=== PATIENT | male | born 1930 | race Caucasian/White ===

== ENCOUNTER → 2016-03-05 | Outpatient (CLI) | payer BC | LOC: GMAB 17:30 | PROVIDERS: ATTEND Family Medicine | DX: E03.9 Hypothyroidism, unspecified (principal) ==

== ENCOUNTER → 2016-07-30 | Outpatient (CLI) | payer BC | END | disposition home or self-care (01) | LOC: GMAB 14:27 | PROVIDERS: ATTEND Family Medicine | DX: R94.6 Abnormal results of thyroid function studies (principal) ==

== ENCOUNTER → 2017-02-10 | Outpatient (CLI) | payer BC, MEDICARE | END | disposition home or self-care (01) | LOC: GMAB 14:42 | PROVIDERS: ATTEND Family Medicine | DX: E03.9 Hypothyroidism, unspecified (principal); Z12.5 Encounter for screening for malignant neoplasm of prostate; M10.9 Gout, unspecified; I10 Essential (primary) hypertension | CPT/HCPCS: 84439; 84443; 84481; 84550; G0103 ==

== ENCOUNTER → 2017-08-03 | Outpatient (CLI) | payer MEDICARE | LOC: GMAB 14:24 | PROVIDERS: ATTEND Family Medicine | DX: E03.9 Hypothyroidism, unspecified (principal) ==

== ENCOUNTER → 2017-08-06 | Outpatient (CLI) | payer MEDICARE, BC ==
--- NOTE | 2017-08-06 14:34 | US ---
EXAM DESCRIPTION: Carotid Duplex: ULTRASOUND. CLINICAL HISTORY: DIZZINESS AND GIDDINESS COMPARISON: None. TECHNIQUE: Transcutaneous scanning utilizing 2-dimensional and Doppler modes to evaluate the bilateral carotid systems and vertebral arteries. Percentage of diameter of stenosis or no stenosis recorded will be based upon NASCET criteria. FINDINGS: Peak systolic/end diastolic (CM-Sec) CCA Right 72/7 Left 61/12. ICA Right proximal 65/12, mid 62/20. Left proximal 66/17, Distal 57/18. Vertebral Right 40/0 Left 41/8. ECA (PS Only) Right 72 left 55. ICA/CCA peak systolic ratio: Right 0.9 Left 1.1 ICA/CCA end diastolic ratio: Right 1.6 Left 1.4 Vertebral arteries: antegrade flow. Comments: Bilateral atherosclerotic calcification in the distal common carotid arteries, bifurcations, and proximal ICAs. Area stenosis of right bulb CCA 37%. Identical diameter stenosis. There is stenosis of proximal ICA 26%; diameter stenosis 35%. Area stenosis in diameter stenosis of the left proximal CCA is 32%. Area stenosis and diameter stenosis of the left CCA bulb is approximately 38%. Area stenosis of the proximal left ICA is 54%; diameter stenosis 35%. IMPRESSION: 1. Doppler evaluation of the bilateral carotid systems and vertebral arteries shows no hemodynamically significant stenoses. 2. No significant amount of plaque seen in the carotid arteries bilaterally. Bilateral vertebral arteries showed antegrade-cephalad flow. Electronically signed by: Kun Gomez MD 08/06/2017 2:32 PM CDT
--- NOTE | 2017-08-11 08:37 | MRI ---
EXAM DESCRIPTION: Brain w/o Contrast: MRI. CLINICAL HISTORY: DIZZINESS AND GIDDINESS COMPARISON: Ultrasound carotid duplex examination on the same visit. TECHNIQUE: Multiplanar, high-field MRI unit, multiple diffusion sequences, multiple conventional sequences without contrast. Note: Images were not available until this date due to technical abnormalities. FINDINGS: Multiple small bilateral foci of hyperintense FLAIR and T2-weighted signal in the periventricular white matter and castro-white matter junctions of the cerebral hemispheres. Slightly more prevalent on the left. Largest focus is in the left occipital periventricular white matter . Dark blooming signal indicating calcification in the bilateral basal ganglia. Also bright T2 signal and decreased FLAIR signal in the basal ganglia. No hemorrhage, no cerebral edema, no mass-effect. Normal signal in the brainstem and cerebellar hemispheres. No hemorrhage, no cerebral edema, no mass-effect. Concordance of the diffusion and non-diffusion sequences with no diffusion restriction. Cortical sulci, ventricles, and other CSF spaces, and the subdural spaces are normally configured for patients age. No effacement or displacement. No midline shift. No extra-axial hemorrhage. Normal flow signal void in the major vessels of the craig Major, and the venous sinuses. IACs are symmetric bilaterally. Minimal fluid signal in the inferior right mastoid air cells. No mass effect in the bilateral cerebellopontine angles. Pituitary gland occupies approximately 50% of the sella. Fluid signal in the bilateral optic nerve sheaths. Base of the cerebellar tonsils is above the foramen magnum. Mucoperiosteal thickening in several compartments of the bilateral paranasal sinuses.. The bony calvarium is intact. IMPRESSION: 1. Bilateral periventricular white matter and subcortical white matter signal changes most likely related to aging and cerebral microvascular disease. No hemorrhage, mass effect, or cerebral edema. No diffusion restriction. 2. Signal changes in the bilateral basal ganglia also consistent with cerebral microvascular disease and ischemia. No diffusion restriction. No hemorrhage, mass effect, or cerebral edema. 3. Normal MRI noncontrast diffusion study with no evidence of acute or subacute infarction. 4. Edema in the optic nerve or its more on the right than the left. The significance of this is uncertain. No hydrocephalus. Paranasal chronic sinusitis. Electronically signed by: Kun Gomez MD 08/11/2017 8:36 AM CDT
== END ==
LOC: US 10:30
PROVIDERS: ATTEND Family Medicine
DX: I65.23 Occlusion and stenosis of bilateral carotid arteries (principal); R42 Dizziness and giddiness

== ENCOUNTER → 2018-02-09 | Outpatient (CLI) | payer MEDICARE, BC | LOC: GMAE 12:29 | PROVIDERS: ATTEND Family Medicine | DX: E03.9 Hypothyroidism, unspecified (principal); M10.9 Gout, unspecified ==

== ENCOUNTER → 2018-09-09 | Outpatient (CLI) | payer MEDICARE, BC ==
--- NOTE | 2018-09-09 16:14 | US ---
EXAM DESCRIPTION: Testicular CLINICAL HISTORY: 88 years Male, ENLARGED RT TESTICLE COMPARISON: None. FINDINGS: The right testicle measures 4.9 x 3.3 x 3.5 cm on the left testicle measures 4.6 x 3.5 x 3.4 cm. Both testicles demonstrate homogenous appearance with no masses. Normal blood flow is identified bilaterally. The right epididymis appears normal. 7 x 6 x 9 mm left epididymal cyst is present. Bilateral hydroceles slightly larger on the right side. IMPRESSION: Bilateral hydroceles, slightly larger on the right side. 7 x 6 x 9 mm left epididymal cyst. Electronically signed by: Shai Ansari MD 09/09/2018 4:11 PM CDT
== END ==
LOC: US 14:30
PROVIDERS: ATTEND Surgery
DX: N50.89 Other specified disorders of the male genital organs (principal); N43.3 Hydrocele, unspecified; N50.3 Cyst of epididymis

== ENCOUNTER 2018-09-27 05:57 | Observation (INO) | payer MEDICARE ==
[2018-09-27] MEDS ORDERED: ceFAZolin SODIUM 1 GM VIAL ONE (07:02)
[2018-09-27] MEDS ORDERED: LACTATED RINGERS 1,000 ML ONE (07:02)
[2018-09-27] MEDS ORDERED: SODIUM CHL 0.9% 100ML MINI-BAG 100 ML IVPB ONE (07:02)
[2018-09-27] MEDS ORDERED: fentaNYL CITRATE INJ 50 MCG/ML AMP ONE (07:38)
[2018-09-27] MEDS ORDERED: KETAMINE HCL 100 MG/ML VIAL ONE (07:44)
[2018-09-27] MEDS ORDERED: BUPIVACAINE 0.5% W/EPI 30 ML VIAL INJ ONE (07:57)
[2018-09-27] MEDS ORDERED: PROPOFOL 200 MG/20 ML VIAL IV ONE (10:00)
[2018-09-27] MEDS ORDERED: LIDOCAINE 1% 10 ML VIAL INJ ONE (10:00)
[2018-09-27] MEDS ORDERED: diphenhydrAMINE HCL 50 MG/ML VIAL IV ONE (10:00)
[2018-09-27] MEDS ORDERED: SODIUM CHLORIDE 0.9% 50 ML VIAL INJ ONE (10:00)
[2018-09-27] MEDS ORDERED: GLYCOPYRROLATE 0.2 MG/ML VIAL IV ONE (10:00)
[2018-09-27] MEDS ORDERED: raNITIdine HCL INJ 25 MG/ML VIAL IV ONE (10:00)
[2018-09-27] MEDS ORDERED: DEXAMETHASONE INJ 10 MG/ML VIAL IV ONE (10:00)
--- NOTE | 2018-09-27 10:10 | OP ---
DATE OF PROCEDURE: 09/27/18 PREOPERATIVE DIAGNOSIS: 1. Bilateral inguinal hernias, right incarcerated. POSTOPERATIVE DIAGNOSIS: 1. Bilateral inguinal hernias with a possible right sided malignant lymph node. PROCEDURE: 1. Repair of right inguinal hernia with PHS mesh and removal of 5 cm retroperitoneal tumor. 2. Repair of left inguinal hernia with PHS mesh of removal of 7 cm fatty, benign appearing retroperitoneal tumor. SURGEON: Anthony López MD. ANESTHESIA: General. FINDINGS: The right side showed a small indirect hernia, but there was a mass about 5 cm that was first thought to be incarcerated fatty content, but appeared to possibly be a lymph node. It was removed and the hernia repaired. The left side showed a very large fatty retroperitoneal tumor coming through the internal ring. It was excised in 3 separate portions and overall was at least 7 by 8 cm. COMPLICATIONS: None. ESTIMATED BLOOD LOSS: Minimal. PLAN: Discharge. INDICATION: As stated. PROCEDURE: General anesthesia was induced. He was prepped and draped in sterile fashion. 0.5% Marcaine with epinephrine was used at the incision sites which were made based on anatomic landmarks. The right side was done first. Subcutaneous tissue was taken down. The external oblique aponeurosis was identified. A small velasquez was made. It was opened along its fibers, opening the internal ring. We identified the palpable mass. It appeared to be fatty tissue coming through the internal ring consistent with incarcerated fatty contents. The cord was isolated and this mass was dissected out to the base. It was ligated with a 2-0 stick tie and the vascular base was reduced. There was a small hernia associated with it. We used 3 moist Raytec sponges to create the preperitoneal plane, keeping the epigastric vessels anterior. A large PHS mesh was then used. The internal portion was placed and under retraction, was lying out nice and flat posterior the epigastric vessels. The external portion was then cut, wrapped around the cord, non-stricturing and secured to the shelving edge and the tubercle laid out underneath the external oblique aponeurosis. The nerve was identified. It was inferior at this point. It was laid on top of the mesh as we closed the external oblique with a running 2-0 Vicryl avoiding the nerve. The subcutaneous tissue was closed with running 3-0 Vicryl and the skin with Monocryl. We then did the left side. Similar opening was used. We did use local and performed ilioinguinal nerve blocks on both sides. The external oblique aponeurosis again was identified. A small velasquez was made. It was opened along its fibers opening the external ring. The cord was then easily isolated and a very large fatty tumor associated with it. This was taken down to the internal ring and excised with 3 separate stick ties as it was so large. There was no evidence of colon involvement. It was all preperitoneal fatty tissue which was completely excised. A moderate sized indirect hernia was identified. This was dissected out from the cord structures and reduced. Again, 3 moist Raytec sponges and finger sweep were used to create the preperitoneal plane. The PHS mesh was then used and laid nice and flat in the preperitoneal space with the epigastric vessels anterior. It was then cut and wrapped around the cord, non-stricturing and secured at the shelving edge and at the tubercle, laid out lateral underneath the external oblique aponeurosis. It was lying nicely. The nerve at this point was not definitely identified, nor was it sacrificed. Care was taken when we closed the external oblique at this time with 2-0 Vicryl not to incorporate any structure that looked like nerve. Everything looked good. The wound was then closed in 2 additional layers. Dressings were applied. He tolerated the procedure. The patient was awakened and taken to Recovery to be discharged. #[id number] [facility]
[2018-09-27] MEDS: HYDROmorphone HCL INJ 2 MG/ML VIAL ONE ×3 (10:23→10:45)
[2018-09-27] MEDS ORDERED: HYDROcodone 5MG/APAP 325MG 1 EA TAB ONE (11:31)
--- NOTE | 2018-09-27 14:39 | HP ---
REASON FOR ADMISSION: Postoperative pain and urinary retention. HISTORY OF PRESENT ILLNESS: Mr. Oliveros was seen in the outpatient clinic and underwent bilateral inguinal hernia repairs today. They were large on the left and the right side also. Postoperatively, after hours of observation, he is still having significant pain and is unable to void, so we are planning on bringing him in for observation. PAST MEDICAL HISTORY: History of coronary disease. Recent echocardiogram was good and he was cleared for surgery. He was on Eliquis, which has been held. Otherwise, he is a very healthy man. PAST SURGICAL HISTORY: As above as well as previous hand and hip surgery. CURRENT MEDICATIONS: 1. Allopurinol. 2. Synthroid. 3. Eliquis. ALLERGIES: PLAQUENIL. PHYSICAL EXAMINATION: VITAL SIGNS: Afebrile. Vital signs normal. GENERAL: He is alert and oriented, in no acute distress. CHEST: Clear. CARDIOVASCULAR: Regular. ABDOMEN: Soft. There is tenderness primarily in the suprapubic area and near the incision, naturally. No evidence of expanding hematoma or other problem. Intraoperatively, there were no unexpected events that would lead to concern for unexpected complication. He is just having difficulty getting the pain controlled and, again, he has not voided. EXTREMITIES: He has no extremity edema. ASSESSMENT: 1. Postoperative pain, unable to be controlled adequately in the outpatient setting. 2. Urinary retention. PLAN: He will be admitted for observation and pain control. [id number]
[2018-09-27] MEDS ORDERED: PROMETHAZINE HCL INJ 12.5 MG in SODIUM CHLORIDE 0.9% 50ML 50 ML IVPB PRN (15:06)
[2018-09-27] MEDS ORDERED: HYDROcodone 5MG/APAP 325MG 1 EA TAB PO PRN (15:07)
[2018-09-27] MEDS ORDERED: MORPHINE SULFATE INJ 10 MG/ML VIAL IV PRN (15:08)
[2018-09-28 06:24] VITALS: BP 126/69; TEMP 98.4; O2SAT 98
--- NOTE | 2018-09-29 11:42 | DS ---
REASON FOR ADMISSION: 1. Postoperative pain unable to be controlled. 2. Urinary retention. HOSPITAL COURSE: Please see operative report for complete details, but the patient was admitted overnight. There were no unexpected events. He remained comfortable. He was getting adequate pain control and had been able to void. In the morning, he was examined. He was in good spirits, asked questions and answered and was able to get up gingerly, but on his own, so he will not need a lot of assistance at home. His pain, again, is controlled, so he is safe for discharge. DISCHARGE INSTRUCTIONS: Discharge home. Regular diet. May remove dressing and shower in 24 hours and remove the tapes in 5 days. Scrotal elevation as needed and ice packs as needed. Prescriptions for Tylenol #3 was given. He is to followup in the office in about 2 weeks. FINAL DIAGNOSIS: Post bilateral inguinal hernia repair with removal of retroperitoneal tumors bilaterally/ cord lipomas. Pathology pending on the right side, which may be an enlarged lymph node. Pain control adequate. He was now able to void. Prognosis is good. PROGNOSIS: Good. [id number]
== END 2018-09-28 11:28 | disposition home or self-care (01) ==
LOC: AMB 05:57 → MS 14:30
PROVIDERS: ADMIT Surgery; ATTEND Surgery
DX: K40.30 Unilateral inguinal hernia, with obstruction, without gangrene, not specified as recurrent (principal); K40.90 Unilateral inguinal hernia, without obstruction or gangrene, not specified as recurrent; C82.15 Follicular lymphoma grade II, lymph nodes of inguinal region and lower limb; G89.18 Other acute postprocedural pain; R33.8 Other retention of urine; I10 Essential (primary) hypertension; E07.9 Disorder of thyroid, unspecified; I25.10 Atherosclerotic heart disease of native coronary artery without angina pectoris; I45.10 Unspecified right bundle-branch block; Z79.01 Long term (current) use of anticoagulants; Z79.899 Other long term (current) drug therapy; Z88.8 Allergy status to other drugs, medicaments and biological substances; Z85.46 Personal history of malignant neoplasm of prostate; Z87.891 Personal history of nicotine dependence
CPT/HCPCS: C1781; J0690; J1200; J3010; J1170; J3490; J1100; J2780; J7050; A4216; J7120; 36415; 85025; 88305; 88342; 88360; 88341; G0378; 49507; 49505; 00840

== ENCOUNTER → 2019-02-14 | Outpatient (CLI) | payer MEDICARE ==
--- NOTE | 2019-02-14 15:40 | CT ---
EXAM DESCRIPTION: Chest w/Contrast (accession [id number]), Abdomen/Pelvis w/Contrast (accession [id number]) CLINICAL HISTORY: FOLLICULAR LYMPHOMA COMPARISON: CT abdomen pelvis July 14, 2018. CT chest May 07, 2011. TECHNIQUE: Postcontrast CT images of the chest are obtained. Pre and postcontrast CT images of the abdomen and pelvis are performed. Patient received oral contrast. This exam was performed according to our departmental dose-optimization program, which includes automated exposure control, adjustment of the mA and/or kV according to patient size and/or use of iterative reconstruction technique . FINDINGS: CT chest: Heart is mildly enlarged. Moderate coronary artery calcifications. Mild to moderate scattered calcified plaque of the thoracic aorta without aneurysmal dilatation or dissection right subclavian Mediport is seen. No pathologically enlarged mediastinal, hilar, or axillary lymphadenopathy seen. No pericardial effusion. Trace left pleural effusion. Lungs are normally aerated without acute appearing infiltrate or consolidation. No worrisome pulmonary nodule. Osseous structures show no aggressive bony lesions. Moderate spondylitic changes of the spine are seen with disc degenerative changes most significant at T2-3 and T5-6. CT abdomen pelvis: Hypoplastic left lobe liver. The liver is otherwise unremarkable. Spleen is normal size. Mild fatty replacement and atrophy of the pancreas is again seen without focal soft tissue mass. The adrenal glands and contracted gallbladder are unremarkable. Moderate calcific atherosclerotic disease of the abdominal aorta. Diffuse cortical thinning in both kidneys. No nephrolithiasis or hydronephrosis. Several small less than 5 mm probable cortical cysts are seen in both kidneys. Urinary bladder is contracted. Mild circumferential bladder wall thickening is seen measuring maximum 6 mm thickness. The prostate is enlarged measuring 4.5 x 5.1 cm. The appendix is not identified. No secondary signs of acute appendicitis. Stomach is poorly distended but otherwise unremarkable. Small bowel shows no obstruction or inflammatory changes. Moderate scattered diverticuli of the colon mainly in the descending to sigmoid region are seen without associated inflammatory changes or fluid collections. Mildly increased volume of formed fecal material throughout the colon. No omental or mesenteric soft tissue nodules. Interval resolution of the fat-containing left inguinal hernia. Postsurgical changes from right inguinal hernia repair are seen with resolution of the soft tissue attenuation mass in the right inguinal canal is seen on previous exam. Enhancing soft tissue probable lymph node in the right external iliac chain adjacent to the acetabulum measures 1.3 x 2.4 cm on image 65 of series 5 compared to 2.8 x 1.6 cm on previous exam. Soft tissue enhancing nodule more proximally anterior to the iliac vessels image 60 of series 5 measures 3.3 x 1.4 cm not seen on previous exam. Lymph nodes are also seen adjacent to the common iliac to external iliac bifurcation measuring 10 mm image 52 of series 5 increased from previous. Enlarged lymph nodes adjacent to the right common iliac artery image 47 of series 5 now measures 11 x 24 mm compared to 7 x 14 mm previous exam. Osseous structures show right hip arthroplasty changes. No aggressive bony lesions. Moderate spondylitic changes of the spine are seen. IMPRESSION: Interval postsurgical changes from resection of mass in the right inguinal canal seen on previous exam. Interval increased size right common and external iliac chain lymph nodes compared to previous exam could represent recurrence of lymphoma versus lymphatic spread of neoplastic process. Consider tissue sampling or PET/CT CT exam for further evaluation. No CT evidence of metastatic disease to the chest. Mild circumferential urinary bladder wall thickening could be secondary to poor distention of the urinary bladder versus some degree of chronic bladder outlet obstruction. Other findings as described above. Electronically signed by: Keny Sanchez MD 02/14/2019 3:38 PM [facility]
== END ==
LOC: CT 09:43
PROVIDERS: ATTEND Internal Medicine Hematology & Oncology
DX: C82.05 Follicular lymphoma grade I, lymph nodes of inguinal region and lower limb (principal); N32.9 Bladder disorder, unspecified; R59.9 Enlarged lymph nodes, unspecified; Z98.890 Other specified postprocedural states

== ENCOUNTER → 2019-03-28 | Outpatient (CLI) | payer MEDICARE | LOC: GMAE 10:25 | PROVIDERS: ATTEND Family Medicine | DX: Z12.5 Encounter for screening for malignant neoplasm of prostate (principal); E03.9 Hypothyroidism, unspecified; I10 Essential (primary) hypertension | CPT/HCPCS: 84439; 84443; 84481; G0103 ==

== ENCOUNTER → 2019-07-06 | Outpatient (CLI) | payer MEDICARE | LOC: GMAE 11:38 | PROVIDERS: ATTEND Family Medicine | DX: E03.9 Hypothyroidism, unspecified (principal) ==

== ENCOUNTER → 2020-01-10 | Outpatient (CLI) | payer MEDICARE | LOC: GMAE 10:57 | PROVIDERS: ATTEND Family Medicine | DX: E03.9 Hypothyroidism, unspecified (principal) ==

== ENCOUNTER → 2020-03-06 | Outpatient (CLI) | payer MEDICARE ==
--- NOTE | 2020-03-06 10:40 | CT ---
EXAMS DESCRIPTION: CT CHEST WITH CONTRAST CT ABDOMEN AND PELVIS WITH CONTRAST CLINICAL HISTORY: FOLLICULAR LYMPHOMA COMPARISON: Previous CT chest, abdomen and pelvis September 28, 2019 TECHNIQUE: CT of the abdomen and pelvis are performed during IV bolus administration of routine adult dose of nonionic iodinated IV contrast. No oral contrast. FINDINGS: CT CHEST: Normal enhancement of intrathoracic vessels. Port-A-Cath is present on the right with tip in the lower superior vena cava. Moderate to extensive coronary calcification. Left ventricular wall is thickened which may be left ventricular hypertrophy. Correlate with echocardiographic findings. Overall the heart is mildly prominent in size. No pericardial effusion. No hilar or mediastinal adenopathy. No lower cervical or supraclavicular or axillary elliott enlargement. No chest wall mass. Bony thorax appears intact. Lung window images show moderate centrilobular emphysematous changes. Focus of groundglass density which could be construed as a nodule with adjacent pleural thickening is seen in the right lower lobe between the superior segment of the basilar segments measuring 9 mm. This appears to be new compared to the previous study (visualized on image 44, series 2). Primary lung malignancy cannot completely be excluded and follow-up is recommended as per recommendations below. No other change compared to the previous study. Coronal and sagittal evaluated showing minimal groundglass density in the left lower lobe. Some areas appear more infiltrative. One area appears more focal areas discussed above. Broad areas of septal thickening are seen in the dependent portion of the lung which can be followed. Normal enhancement of pulmonary arteries and aorta. Prominent spurring in the mid T-spine. Degenerative disc disease in the upper T-spine. No bony destructive lesion of the spine or sternum. CT abdomen Diffuse renal cortical thinning is noted bilaterally consistent with senescent atrophy. Correlate with renal function tests. Tiny cortical cyst anteriorly on the right. Otherwise the liver, spleen, pancreas, gallbladder, adrenal glands and stomach are unremarkable in appearance. Calcified aorta without aneurysm. No inflammation around the pancreas. No renal stones or hydronephrosis. No bowel dilatation to suggest obstruction. No free air or free fluid. CT pelvis Appendix appears normal. No inflammation around the cecum or terminal ileum or sigmoid colon. A stone is seen in the distal right ureter which may be chronically compensated since there is no significant right hydronephrosis or dilatation of the right ureter. The distal stone is approximately 1 to 2 cm above the right ureterovesical junction and measures 5 x 6 mm in size. Bladder and distal left ureter are negative for stones. 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 Advanced degenerative arthrosis of the left hip with degenerative narrowing of the lower lumbar facets and SI joints. Normal enhancement of pelvic vessels. No inguinal or lower pelvic adenopathy. Enlarged prostate measures 5.1 cm in transverse dimension with elevation of the bladder base. Bladder wall appears mildly thickened. Bone window images are negative for fracture or lytic lesion. Coronal and sagittal reformatted images confirm the findings. Advanced degenerative changes of the lumbar spine. The distal right ureteral stone measures 6 mm in length. The prostate is enlarged. Thickening of the bladder wall may be detrussor muscular hypertrophy related to chronic partial bladder outlet obstruction. 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 The spleen is not enlarged and there is no focal splenic lesion. No enlargement of retroperitoneal lymph nodes in the abdomen or pelvis. No mesenteric elliott enlargement. Inguinofemoral nodes are normal. IMPRESSION: Negative for evidence of active lymphoma in the chest, abdomen or pelvis. Stone 5 x 6 mm in the distal right ureter. Enlarged prostate. Groundglass nodule in the right lower lobe measuring 9 mm. Follow-up as per recommendations below. 2017 Fleischner Society Recommendations for Subsolid Lung Nodule Follow-Up based on size (average of long- and short-axis diameters). Use most suspicious nodule for followup. Single > or = 6 mm Ground glass: CT at 6-12 months to confirm persistence, then CT every 2 years until 5 years > or = 6 mm Part solid: CT at 3-6 months to confirm persistence, If unchanged and solid component remains<6mm, annual CT should be performed for 5 years. This exam was performed according to our departmental dose-optimization program, which includes automated exposure control, adjustment of the mA and/or kV according to patient size and/or use of iterative reconstruction technique. Total DLP equals 1221.79 mGycm. Electronically signed by: Wiley Lott MD 03/06/2020 10:[address] [facility]
== END ==
LOC: LAB 08:20
PROVIDERS: ATTEND Internal Medicine Hematology & Oncology
DX: C82.05 Follicular lymphoma grade I, lymph nodes of inguinal region and lower limb (principal); N40.0 Benign prostatic hyperplasia without lower urinary tract symptoms; N20.1 Calculus of ureter; R91.1 Solitary pulmonary nodule